=== PATIENT | male | born 1975 | race Caucasian/White ===

== ENCOUNTER 2017-09-19 05:24 | Day surgery (SDC) | payer BC, OTHER ==
[~2017-09-19] VITALS: Ht 177.8 cm; Wt 129.3 kg
--- NOTE | ~2017-09-19 | O ---
[facility] [place] [address] OPERATIVE REPORT Name: MALLY CABRERA Room #: 410-P [facility]#: [id number] Admission: 09/19/17 Attend Phys: Lemuel Ortega MD Discharge: Date of : 75 Report #: [id number] THIS REPORT FOR: //name// CC: FATOU Ortega Physician staff DATE OF SERVICE: 09/19/2017 SERVICE: Orthopedics. FACILITY: [facility]. SURGEON: Lemuel Ortega MD ACCOUNT EXECUTIVE TRAINEE: None. PREOPERATIVE DIAGNOSES: 1. Chronic right knee pain. 2. Right knee chondromalacia. 3. Right knee genu varum with malalignment and medial compartment overload. POSTOPERATIVE DIAGNOSES: 1. Chronic right knee pain. 2. Right knee chondromalacia. 3. Right knee genu varum with malalignment and medial compartment overload. 4. Medial plica syndrome, right knee. PROCEDURES: 1. Right knee arthroscopic chondroplasty with microfracture of the medial femoral condyle. 2. Right knee arthroscopic resection of the medial plica. 3. Right knee high tibial osteotomy. COMPLICATIONS: None. DRAINS: None. SPECIMENS: None. FINDINGS: 1. Grade 2 and 3 chondromalacia of the trochlea as well as the majority of the medial femoral condyle, which was treated with chondroplasty. In regards to the medial femoral condyle, this was more impressive and pronounced than what was suggested by the MRI. Microfracture performed of the posterior linear portion of the chondromalacia on the medial femoral condyle as indicated by the imaging. [address] [address] OPERATIVE REPORT Name: MALLY CABRERA Room #: 410-P [facility]..#: [id number] Admission: 09/19/17 Attend Phys: Lemuel Ortega MD Discharge: Date of : 75 Report #: [id number] 2. Lateral compartment was normal. 3. Arthrex 10 degree correction wedge utilized for HTO with cancellous chips and OSferion wedges. 4. Toe touch weightbearing to right lower extremity x 6 weeks. HISTORY AND INDICATIONS: The patient is a 41-year-old gentleman with a longstanding history of persistent right knee pain that had failed all conservative measures including rest, activity modification, oral medicines, injection and medications. He is having daily pain that was limiting his ADLs and he eventually elected to undergo a definitive treatment for this. We had long discussions in the clinic about the best option for it. He had an MRI of the right knee, which showed chondromalacia of the medial femoral condyle posteriorly. We discussed autologous chondrocyte implantation versus microfracture versus osteoarticular transplantation and ultimately elected to go with an approach for OATS versus microfracture as well as an HTO for his varus deformity. Risks, benefits, alternatives, and indications for surgery were discussed with him in detail. Risks include but not limited to pain, bleeding, infection, injury to nerves or blood vessels, persistent pain despite surgical intervention, failure of any repairs, reconstruction, progression of any preexisting chondral injury, stiffness, need for further surgery as well as complications related to anesthesia such as stroke, heart attack, pulmonary complications, thromboembolic disease and . Despite these risks, he wished to proceed. PROCEDURE IN DETAIL: After right lower extremity was identified as the operative extremity, the patient underwent placement of a single shot regional nerve block with an adductor canal block by the Anesthesia team. He was then taken to the operating room where general anesthesia was induced without complication. Tourniquet was applied to the right thigh. Right leg was prepped and draped in standard sterile fashion. Prophylactic antibiotics with clindamycin were administered at appropriate time. A time-out procedure was performed. A standard anterolateral was followed by anteromedial working portal were established. Diagnostic arthroscopy revealed some significant synovitis throughout as well as some floating chondral debris. The lateral compartment was normal. The patellar cartilage was normal. The trochlea has majority of the articular cartilage defect of a grade 2 and 3 chondromalacia, probably about 75% of the surface area. This extended down towards the medial femoral condyle where there was also a significant grade 2 and grade 3 chondromalacia, but I only noted one very small area of grade 4 full thickness cartilage loss, which measured about 3 mm x 3 mm at the apex of the medial femoral condyle in the weightbearing zone. There was a thickened synovial fold running across the medial femoral condyle that was consistent with a plica. As this has contacted directly over the chondromalacia, I removed this with a shaver performing a plica resection. A shaver was then used to perform chondroplasty of the frayed [address] [address] OPERATIVE REPORT Name: PERLATORREYXenaMALLY Room #: 410-P [facility]#: [id number] Admission: 09/19/17 Attend Phys: Lemuel Ortega MD Discharge: Date of : 75 Report #: [id number] grade 3 chondromalacia and was used to stabilize any loose edges and then the knee was flexed deeper. This allowed visualization of the linear groove that was running anterior to posterior that was recognized on the preoperative MRI and this was near full thickness, so I debrided this with a shaver and then completed microfracture with a [employer] 0.9 mm drill bit. The medial meniscus was normal. There was fraying of the articular cartilage of the posterior medial tibial plateau as well and this was treated with limited chondroplasty. There were no loose bodies and the cruciate ligaments were normal. At this point, after conclusion of the microfracture, the plica resection and chondroplasty, attention was turned towards the tibia. An Esmarch was used to exsanguinate the extremity. Tourniquet was inflated to 350 mmHg. Total tourniquet time was 133 minutes. A standard medial approach to the tibia was made and full thickness skin flaps were developed. The periosteum and MCL and hamstring tendons were identified. An L-shaped incision was made in the periosteum and subperiosteal dissection was performed to elevate the soft tissues while protecting the critical structures. The anterior aspect of the wound was developed in order to allow access to the lateral border of the patellar tendon and this was retracted for the procedure. The ArthMobileReactorlance HTO system was then used to size this patient to a size large implant and a cross table lateral was used to ensure appropriate tibial slope. When the cutting guide was pinned into position here, the final cutting guide placement was completed and then the saw was used to perform the osteotomy with the popliteal retractor in place to protect the posterior neurovascular bundle. A handheld osteotome was used to complete the resection and then the wound was copiously irrigated. With a valgus stress, the distraction paddles were placed into the osteotomy site and the knee was sequentially gapped open. We initially had templated approximately an 8.3-8.4 degree correction and ultimately selected a 10 degree implant. Initially, I chose the 12 mm implant, but this was actually too big and was selected as a function of the distraction paddles torquing and giving it to a 12 degree misread. With the 10 degree size, the patient's alignment was improved from the medial portion of the joint to the peak of the lateral tibial spine, which was the target zone for the presybeterian and alignment correction. After the implant was selected, it was fixed into position and secured. Multiple planes of x-ray used to confirm the appropriate position of the implant and good sizing and then the wound was copiously irrigated and the tourniquet was let down. Hemostasis was achieved. The osteotomy site had been packed with OSferion wedges x 2 as well as cancellous allograft chips and the residual bone reamings, which was autograft placed in the posterior aspect of the wound. The wound was dry and there was no need for a drain. The deep layer was closed with 0 Vicryl suture. Skin was closed with 2-0 Vicryl suture, followed by Monocryl and a sterile dressing was applied, followed by compression stocking. A knee immobilizer was then placed. [address] [address] OPERATIVE REPORT Name: MALLY CABRERA Room #: 410-P [facility] M.R.#: [id number] Admission: 09/19/17 Attend Phys: Lemuel Ortega MD Discharge: Date of : 75 Report #: [id number] The patient had a strong pulse prior to leaving the operating room. There were no complications. All counts were reported as correct. <ELECTRONICALLY SIGNED> By: Lemuel Ortega MD 09/20/17 0557 1616 1836 Lemuel Ortega MD /nt
[~2017-09-19 05:24] MED LIST: ALEVE220 MG PO; ALLEGRA D PO; BLACK ELDERBERRY PO; CELEBREX 200 M200 MG PO; PROAIR HFA8.5 GM INH; VALIUM5 MG PO
[2017-09-19 10:30] VITALS: BP 132/79
[2017-09-19 16:53] VITALS: BP 183/114
[2017-09-19 20:00] VITALS: BP 129/86
[2017-09-20] VITALS: BP 129/79
[2017-09-20 04:00] VITALS: BP 126/76
[2017-09-20 09:28] VITALS: BP 126/76
== END 2017-09-20 11:15 | disposition home or self-care (01) ==
LOC: TBA 05:24 → OR 05:24 → 4N 16:52 → ENTRNSPT 09-20 10:20 → EDTRNSPTSTS 09-20 10:34 → OR 09-20 11:15
DX: M17.11 Unilateral primary osteoarthritis, right knee (principal); M94.261 Chondromalacia, right knee; M21.161 Varus deformity, not elsewhere classified, right knee; M67.51 Plica syndrome, right knee; J45.909 Unspecified asthma, uncomplicated; G47.33 Obstructive sleep apnea (adult) (pediatric); Z90.49 Acquired absence of other specified parts of digestive tract; Z98.890 Other specified postprocedural states; Z87.442 Personal history of urinary calculi; Z88.8 Allergy status to other drugs, medicaments and biological substances
CPT/HCPCS: 10790; 50010; 50101; 50415; 50954; 51038; 52282; 53000; 53170; 54170; 55430; 56527; 56528; 62110; 62900; 70005

== ENCOUNTER 2017-10-03 05:31 | Day surgery (SDC) | payer BC, OTHER ==
[~2017-10-03] VITALS: Ht 177.8 cm; Wt 129.3 kg
--- NOTE | ~2017-10-03 | O ---
[facility] [place] [address] OPERATIVE REPORT Name: MALLY CABRERA Room #: DEP [facility].#: [id number] Admission: 10/03/17 Attend Phys: Lemuel Ortega MD Discharge: 10/03/17 Date of : 75 Report #: [id number] THIS REPORT FOR: //name// CC: Lemuel Ortega Physician staff DATE OF SERVICE: 10/03/2017 SERVICE: Orthopedics. FACILITY: [facility]. SURGEON: Lemuel Ortega MD ALPINE GUIDE: None. PREOPERATIVE DIAGNOSIS: Hematoma, right leg. POSTOPERATIVE DIAGNOSIS: Hematoma, right leg. PROCEDURE: Irrigation and debridement, right leg down to the muscle. ANESTHESIA: General. COMPLICATIONS: None. DRAINS: None. SPECIMENS: Cultures x 2 with tissue specimen sent with the aerobic, anaerobic and fungal cultures. FINDINGS: No signs of purulence. HISTORY AND INDICATIONS: The patient is a 41-year-old gentleman who is 2 weeks status post high tibial osteotomy. He was having issues with his wound postoperatively. We saw him last week and he was having some drainage that continued through the weekend despite wound care. He had evidence of retained hematoma and he was having some difficulty with his rehab as well and so we ultimately felt for the best chance of minimizing further wound complication including infection within the hematoma that surgical irrigation and debridement was most appropriate. Risks, benefits, alternatives and indications for surgery were discussed with him in detail and he gave full informed consent. PROCEDURE IN DETAIL: After right leg was correctly identified as the operative extremity, the patient was taken to the operating room where general anesthesia was induced without complications. Appropriately, prophylactic antibiotics were [facility] [address] [place] [address] OPERATIVE REPORT Name: MALLY CABRERA Room #: DEP [facility]..#: [id number] Admission: 10/03/17 Attend Phys: Lemuel Ortega MD Discharge: 10/03/17 Date of : 75 Report #: [id number] held until after the specimen was taken. No tourniquet was applied. The right leg was prepped and draped in standard sterile fashion. Time-out procedure was performed. The previous incision on the medial aspect of the right leg was incised and dissection was taken down through the wound. There was hematoma noted. This was cultured for anaerobic, aerobic and fungal, and then I explored distally with blunt dissection down to the level of the muscle and then took a second specimen as well as a small sample of necrotic fat and placed this in there with the culture specimen as well. At this point, the patient received his prophylactic antibiotics with 2 grams Ancef and then an elevator was used to debride the necrotic fat. There was no evidence of purulence. There was no tracking down to the bone. The deep layer had actually healed quite nicely at this point and granulated over the bone, and there were no fluid pockets other than some retained hematoma distal where there was some potential space that had developed into a small cavity containing approximately 3-4 mL of hematoma. The wound was then thoroughly irrigated with 3 liters of fluid and cleaned fluid was returned. Hemostasis was achieved as needed, although the wound really did not bleed much at all. The total estimated blood loss was 5 mL. The wound was then closed over a gram of vancomycin powder with 2-0 Monocryl followed by 3-0 nylon. Sterile dressing was applied. The patient was awakened from anesthesia and taken to recovery room in stable condition. There were no complications and all counts were reported as correct. <ELECTRONICALLY SIGNED> By: Lemuel Ortega MD 10/04/17 0640 1831 1852 Lemuel Ortega MD /nt
[2017-10-03 08:33] VITALS: BP 136/98
[2017-10-03 11:38] VITALS: BP 136/98
== END 2017-10-03 12:35 | disposition home or self-care (01) ==
LOC: TBA 05:31 → OR 05:31 → TBA 05:32 → OR 12:35
DX: M96.840 Postprocedural hematoma of a musculoskeletal structure following a musculoskeletal system procedure (principal); J45.909 Unspecified asthma, uncomplicated; G47.33 Obstructive sleep apnea (adult) (pediatric); Z87.442 Personal history of urinary calculi; Z90.49 Acquired absence of other specified parts of digestive tract; Z98.890 Other specified postprocedural states; Z79.891 Long term (current) use of opiate analgesic; Z79.82 Long term (current) use of aspirin
CPT/HCPCS: 50010; 50101; 50386; 53078; 56525; 56527; 57091; 62110; 62900; 70005

== ENCOUNTER 2017-12-04 08:46 | Inpatient (IN) | payer BC, OTHER ==
[~2017-12-04] VITALS: Ht 177.8 cm; Wt 127.0 kg
--- NOTE | ~2017-12-04 | HC ---
[facility] [place] [address] CONSULTATION Name: PERLATORREYXenaMALLY Room #: 405-P [facility] M.R.#: [id number] Admission: 12/04/17 Attend Phys: Cony Smith Discharge: Date of : 75 Report #: [id number] THIS REPORT FOR: //name// CC: Cony Smith [facility] DATE OF SERVICE: 12/04/2017 REASON FOR CONSULTATION: Right-sided low back pain. HISTORY OF PRESENT ILLNESS: The patient is a 41-year-old male who reports being startled in bed 2 weeks ago. He straightened his right hip, felt a pop. He has had progressive worsening pain since. He said it is worse and the pain is exacerbated when he sits or ambulates. He has been attending therapy postoperatively for his right tibial osteotomy and knee scope done on 09/19/2017. He denies any numbness in his legs. Denies any urinary or bowel changes. He reports being seen by his primary care doctor, received systemic steroid injection and Lidoderm patches, which he reports has not improved his pain. His pain progressively has become worse and last night he report having significant pain and difficulty using the restroom due to the pain in the sitting position. REVIEW OF SYSTEMS: NEUROLOGIC: Denies numbness or tingling in the extremities. MUSCULOSKELETAL: Reports what he feels is expected postoperative pain for the right leg. PAST MEDICAL HISTORY: Asthma. ALLERGIES: INCLUDE ACETAMINOPHEN, HYDROCODONE, ASPIRIN, CEFDINIR AND IBUPROFEN. MEDICATIONS: Home medications were just started include methocarbamol, lidocaine and albuterol sulfate. PAST SURGICAL HISTORY: He had lumbar L5 and S1 fusion with a history of MRSA infection, cholecystectomy, tonsillectomy, left ankle tendon repair, multiple surgeries on the right shoulder and the right knee surgery. SOCIAL HISTORY: He works in [employer] and spends a lot of time driving. Denies smoking or drinking alcohol. He is . Denies any use of assistive devices. LABORATORY DATA: On 12/04/2017 showed white blood cell count 8.4, hemoglobin 14.6, hematocrit 42.1, platelet count 173. Chemistry is grossly normal. PHYSICAL EXAMINATION: [facility] [address] [place] [address] CONSULTATION Name: MALLY CABRERA Room #: 405-P [facility].#: [id number] Admission: 12/04/17 Attend Phys: Cony Smith Discharge: Date of : 75 Report #: [id number] GENERAL: He is alert and oriented. He interacts appropriately. He is well-developed, well-nourished male in mild distress. His is at his bedside. VITAL SIGNS: Most recent vital signs show temperature of 36.6, heart rate 60, respiratory rate 14, blood pressure 143/80, and pulse oximetry is 93% on room air. EXTREMITIES: Examination of the right lower extremity, sensation is intact to light touch throughout. He has brisk capillary refill. He does not have any significant weakness to thigh abduction, adduction, EHL, FHL, dorsiflexion, plantarflexion, knee flexion or extension and hip flexion. He has a prior surgical scar on the anterior aspect of his knee. There is no pain with hip or knee range of motion. There is some tenderness at the greater trochanter, but most of his tenderness appears to be at the right side of his SI joint. There is some mild midline lumbar spine tenderness. There is no pain with straight leg raise and no tension signs. RADIOGRAPHS: MRI and lumbar CT scan show postsurgical changes and some mild disk herniation. IMPRESSION AND PLAN: Right low back pain. This appears clinically to be sacroiliac generated; however, he does have some changes on the MRI consistent with some right-sided mild disk herniation. I will discuss this patient with Dr. Ortega as well as Kerry and we will order a consult for pain management from Dr. Devin Phelan. The patient has seen him in the past and felt comfortable in this recommendation. Thank you very much for allowing me to participate in the care of this patient. By: [id number] 1930 Laura Franks MD /viridiana
--- NOTE | ~2017-12-04 | HPC ---
[facility] [address] [address] [place] [address] PAIN MANAGEMENT CONSULTATION Name: MALLY CABRERA Room #: 405-P [facility] M.R.#: [id number] Admission: 12/04/17 Attend Phys: Cony Smith Discharge: Date of : 75 Report #: [id number] THIS REPORT FOR: //name// CC: Cony Smith [facility] DATE OF SERVICE: 12/05/2017 HISTORY OF PRESENT ILLNESS: The patient is a 41-year-old gentleman who I have seen previously in the pain clinic. Last time I saw him was for post-laminectomy syndrome with radiculopathy in 2011. He has been doing reasonably well. It is noted that he had a fusion with Dr. Payne in 2005 and has had some chronic pain. Beginning about 2 weeks ago, he started to hear a sudden sensation and his pain is radiating into his hip and down into the anterior thigh and groin. He had initially felt a pop in his hip sensation, however, an MRI scan on admission demonstrated a concordant L3-L4 right foraminal focal disk herniation with moderate right foraminal stenosis, it was compromising the right L3 nerve root. This was felt to be the pain generator based upon his symptoms and presentation. He had good results with the previous epidural, and for that reason, we were asked to see him. I am hopeful that we can provide similar relief and he can be discharged from the hospital. He does not like to take pain medications. He was given some Robaxin and has taken anti-inflammatory drugs with practically no improvement. He tried some Lidoderm patches, but as expected, this does not provide relief. A Toradol shot also was unhelpful, and he had a recent steroid injection in his right hip. CURRENT MEDICATIONS: Robaxin, albuterol and lidocaine. ALLERGIES: HE DOES NOT DO WELL WITH HYDROCODONE, HAS ASTHMA EXACERBATION WITH ASPIRIN AND IBUPROFEN. PAST MEDICAL HISTORY: Positive for asthma, tonsillectomy, cholecystectomy, ankle repair, fusion L5-S1 and repeat surgery extending to L4 two weeks later. He has sleep apnea. History of kidney stones. Most recent surgery was in September of this year. He had a tibial osteotomy. 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 He denies use of tobacco or alcohol. Denies use of any recreational drugs. REVIEW OF SYSTEMS: Positive for some asthma. Denies any bowel or bladder issues at this time. PHYSICAL EXAMINATION: GENERAL: He is in quite a bit of discomfort. He came down in a wheelchair. He [facility] [address] [place] [address] PAIN MANAGEMENT CONSULTATION Name: MALLY CABRERA Room #: 405-P [facility] ..#: [id number] Admission: 12/04/17 Attend Phys: Cony Smith Discharge: Date of : 75 Report #: [id number] scores his pain as a 9-10/10. VITAL SIGNS: Today, blood pressure of 141/63, heart rate 62, respirations are 18, O2 sat 96%. He is afebrile. He is able to move from sitting to standing position, but is in quite a bit of discomfort. He is noted to have a weight of 280 pounds, 5 feet 10 inches. CHEST: Clear. CARDIAC: Rhythm is regular. MUSCULOSKELETAL: Examination of the spine reveals a midline scar from previous laminectomy fusion. There is tenderness over the scar. Tenderness in the right gluteal cheek. Straight leg raising is positive. He has a scar on the right leg from previous tibial osteotomy. EXTREMITIES: Examination of reflexes shows asymmetry. He has a trace at the knee on the right compared to 2+ on the left and ankle jerk reflexes are symmetrical at 1+. Sensation is intact, but he has some hyperalgesia in the anterior thigh and radiating in the upper thigh almost to the groin. Pain follows L2, L3, L4 dermatomal distribution consistent with the acute lateral right herniation seen on MRI. IMPRESSION: Lumbar radiculopathy, L3-L4. This is related likely to the L3-L4 foraminal disk herniation. RECOMMENDATIONS: Two level transforaminal epidural injection. We discussed injecting the L4-L5 foramen off and the medication travel cephalad along the pedicle. I also told him to make sure that we cover the L3 nerve root effectively, and if necessary, we will reposition the needle as we did during the procedure. I ended up injecting half his medication at L3-L4 and the other half at L4-L5 with fluoroscopic guidance. He was taken to fluoroscopic suite, placed prone, skin prepped with ChloraPrep. Skin anesthetized over the L4-L5 neural foramen. A 20-gauge 6 inch needle was required to advance into the neural foramen using triplanar fluoroscopic views. I injected 1 mL of Omnipaque demonstrating spread into the epidural space. However, there was no cephalad spread. Most of that being contained around the L4-L5 space. I injected half the medication there without difficulty. The needle was withdrawn. I then anesthetized the L3-L4 neural foramen using triplanar fluoroscopic views, I advanced needle into the foramen at that level. 1 mL of Omnipaque demonstrated epidural and nerve root spread. It was then followed by 3 mL of 1% lidocaine mixed with 40 mg of triamcinolone. He tolerated the procedures well, although very uncomfortable lying prone for the procedure. He was taken to recovery room in a wheelchair, was in good condition at time of this dictation, will be sent back to the floor. [facility] [address] [place] [address] PAIN MANAGEMENT CONSULTATION Name: MALLY CABRERA Room #: 405-P [facility].R.#: [id number] Admission: 12/04/17 Attend Phys: Cony Smith Discharge: Date of : 75 Report #: [id number] There were no complications. By: [id number] Devin Phelan MD /nt
[2017-12-04 08:50] VITALS: BP 171/113
[2017-12-04] MEDS ORDERED: LIDOCAINE1 EACH TRANSDERM (08:54)
[2017-12-04] MEDS ORDERED: METHOCARBAMOL500 M2 PO (08:54)
[2017-12-04 10:52] LABS: ABSOLUTE NEUTROPHILS 6.1 thou/uL (1.4-8.2); BASOPHILS 0.4 % (0.0-2.0); EOSINOPHILS 1.4 % (0.0-3.0); HEMATOCRIT 42.1 % (42.0-52.0); HEMOGLOBIN 14.6 gm/dL (14.0-18.0); LYMPHOCYTES 16.4 % (24.0-44.0); MCH 28.5 pg (26.0-34.0); MCHC 34.6 g/dL (28.0-37.0); MCV 82.4 fL (80.0-100.0); MONOCYTES 8.3 % (1.0-8.0); PLATELET COUNT 173 thou/uL (150-400); POLYS 73.5 % (36.0-66.0); RBC 5.12 mil/uL (4.50-6.00); RDW 14.5 % (10.5-14.5); WBC 8.4 thou/uL (4.0-11.0)
[2017-12-04 10:59] LABS: CALCIUM 9.2 mg/dL (8.5-10.1); CREATININE 0.9 mg/dL (0.7-1.3); POTASSIUM 4.3 mmol/L (3.5-5.1)
[2017-12-04 11:35] VITALS: BP 132/89
[2017-12-04 12:37] VITALS: BP 128/76
[2017-12-04 12:52] VITALS: BP 143/80
[2017-12-04 16:50] VITALS: BP 139/72
[2017-12-04 21:52] VITALS: BP 138/70
[2017-12-05 03:45] VITALS: BP 133/63
[2017-12-05 07:17] VITALS: BP 141/63
[2017-12-05] MEDS ORDERED: FLEXERIL PO (16:02)
[2017-12-05] MEDS ORDERED: OXYCODONE HCL 55 MG PO (16:02)
[2017-12-05] MEDS ORDERED: MIRALAX17 GM PO (16:03)
[2017-12-05 16:32] VITALS: BP 141/63
[2017-12-05 19:46] VITALS: BP 141/63
== END 2017-12-05 19:05 | disposition home or self-care (01) | DRG 552 ==
LOC: ER 08:46 → EROBS 11:25 → 4N 11:25
PROVIDERS: Physician Assistant
PROC: 3E0S3BZ Introduction of Anesthetic Agent into Epidural Space, Percutaneous Approach (ICD-10-PCS; principal; 2017-12-05)
PROC: 3E0S33Z Introduction of Anti-inflammatory into Epidural Space, Percutaneous Approach (ICD-10-PCS; principal; 2017-12-05)
DX: M51.16 Intervertebral disc disorders with radiculopathy, lumbar region (principal); J45.909 Unspecified asthma, uncomplicated; B95.62 Methicillin resistant Staphylococcus aureus infection as the cause of diseases classified elsewhere; Z98.1 Arthrodesis status; Z90.49 Acquired absence of other specified parts of digestive tract; Z86.14 Personal history of Methicillin resistant Staphylococcus aureus infection; Z87.442 Personal history of urinary calculi; Z79.899 Other long term (current) drug therapy; Z88.6 Allergy status to analgesic agent; Z88.8 Allergy status to other drugs, medicaments and biological substances
CPT/HCPCS: 10790

== ENCOUNTER 2018-07-05 05:25 | Day surgery (SDC) | payer BC, OTHER ==
[~2018-07-05] VITALS: Ht 177.8 cm; Wt 132.4 kg
[~2018-07-05 05:25] MED LIST changes: +FLEXERIL PO; +LIDOCAINE1 EACH TRANSDERM; +METHOCARBAMOL500 M2 PO; +MIRALAX17 GM PO; +OXYCODONE HCL 55 MG PO
[2018-07-05 14:10] VITALS: BP 139/84
--- NOTE | 2018-07-06 21:11 | O ---
[address] [address] OPERATIVE REPORT Name: MALLY CABRERA Room #: DEP [facility].#: [id number] Admission: 07/05/18 Attend Phys: Lemuel Ortega MD Discharge: 07/05/18 Date of : 75 Report #: [id number] THIS REPORT FOR: //name// CC: FATOU Ortega Physician staff DATE OF SERVICE: 07/05/2018 SERVICE: Orthopedics. FACILITY: [facility]. SURGEON: Lemuel Ortega MD [employer] [facility]IES: Adela Taveras NP PREOPERATIVE DIAGNOSES: 1. Right knee pain. 2. Status post right knee high tibial osteotomy. 3. Right knee chondromalacia. POSTOPERATIVE DIAGNOSES: 1. Right knee pain. 2. Status post right knee high tibial osteotomy. 3. Right knee chondromalacia. 4. Small inner rim lateral meniscus tear. PROCEDURE: Right knee arthroscopy with partial lateral meniscectomy and chondroplasty. COMPLICATIONS: None. DRAINS: None. SPECIMENS: None. ANESTHESIA TYPE: General. FINDINGS: 1. Significant chondromalacia of the medial compartment as well as the patellofemoral compartment. 2. Posterior medial femoral condyle area of microfracture had healed successfully. However, continue chondromalacia present in the anterior half of the medial femoral condyle. [address] [address] OPERATIVE REPORT Name: MALLY CABRERA [id number] Admission: 07/05/18 Attend Phys: Lemuel Ortega MD Discharge: 07/05/18 Date of : 75 Report #: [id number] HISTORY AND INDICATIONS: The patient is a 42-year-old gentleman with a history of persistent right medial knee pain following high tibial osteotomy and microfracture of the medial femoral condyle. He had an area of full thickness articular cartilage damage preoperatively from the first surgery that is the portion that was treated with microfracture, but it was noted intraoperatively to have an additional area of significant grade 2 and grade 3 chondromalacia that was not amenable to this treatment and was treated with chondroplasty. He continued to have pain postoperatively particularly of the medial compartment. We tried extensive conservative measures and completed repeat MRI as well and ultimately he wished to move forward with diagnostic arthroscopy with debridement as indicated. Risks, benefits, alternatives, and indications for this surgery were discussed with him. Risks included but not limited to pain, bleeding, infection, injury to nerves or blood vessels, persistent pain despite surgical intervention, progression of preexisting chondral injury, stiffness, need for further surgery, etc., as well as complications related to anesthesia. PROCEDURE IN DETAIL: After the right lower extremity was correctly identified in preoperative holding area as the operative extremity, the patient was taken to the operating room where general anesthesia was induced without complication. He was padded appropriately. Prophylactic antibiotics were administered at appropriate time. Tourniquet was applied to the right lower extremity. The legs were then prepped and draped in standard sterile fashion. Timeout procedure performed. Standard anterolateral as well as anterior medial working portals were established in typical fashion. Diagnostic arthroscopy revealed overall intact articular cartilage of the patella. There was significant chondromalacia of the trochlea with grade 3 and grade 4 involvement of much of the central portion of the trochlea. There was fraying and softening of the articular cartilage of the medial femoral condyle, which extended from the anterior portion of the distal femur all the way to at least the midpoint of the medial femoral condyle. Posteriorly with the knee in deep flexion, the cartilage was evaluated. He had stable fibrocartilage in place with a microfracture had been performed, which was healed over nicely. Unfortunately, the pathologic cartilage more anteriorly, which could not be treated with microfracture at the previous surgery had not stabilized since the HTO. There was a portion of grade 3 chondromalacia in the central portion of the medial tibial plateau as well. The medial meniscus was intact and was healthy. The ACL and PCL were intact. The lateral compartment was healthy with the exception of inner rim partial thickness perhaps 10% thickness tearing of the lateral meniscus. This was not likely to be a pain generator, but I did want to prevent this from propagating further and becoming symptomatic lateral meniscus tear and so I treated the inner rim lateral meniscus tear with simple debridement with a biter and shaver. The leg was placed into extension. The chondroplasty was completed of the patellofemoral compartment as well after the medial femoral condyle chondroplasty had been performed and then the arthroscopic effusion was drained, the instruments were removed from the knee and the portal sites were closed and sterile dressing was applied. The patient was then awakened from [address] [address] OPERATIVE REPORT Name: MALLY CABRERA Room #: DEP [facility] Sanjuana#: [id number] Admission: 07/05/18 Attend Phys: Lemuel Ortega MD Discharge: 07/05/18 Date of : 75 Report #: [id number] anesthesia and taken to recovery room in stable condition. There were no complications and all counts were recorded as correct. <ELECTRONICALLY SIGNED> By: Lemuel Ortega MD 07/06/18 [id number] [id number] Lemuel Ortega MD /nt
== END 2018-07-05 17:07 | disposition home or self-care (01) ==
LOC: TBA 05:25 → OR 05:25
DX: S83.281A Other tear of lateral meniscus, current injury, right knee, initial encounter (principal); M94.261 Chondromalacia, right knee; J45.901 Unspecified asthma with (acute) exacerbation; G47.30 Sleep apnea, unspecified; Z98.890 Other specified postprocedural states; Z79.899 Other long term (current) drug therapy; Z79.82 Long term (current) use of aspirin; Z88.8 Allergy status to other drugs, medicaments and biological substances; Z87.442 Personal history of urinary calculi; Z90.49 Acquired absence of other specified parts of digestive tract; Z90.89 Acquired absence of other organs; X58.XXXA Exposure to other specified factors, initial encounter; Y93.89 Activity, other specified; Y92.89 Other specified places as the place of occurrence of the external cause; Y99.8 Other external cause status
CPT/HCPCS: 50010; 50101; 50405; 51038; 54170; 56527; 57103; 62110; 62900; 70005

== ENCOUNTER → 2021-04-07 | Day surgery (SDC) | payer OTHER ==
[~2021-04-07] VITALS: Ht 177.8 cm; Wt 142.9 kg
[~2021-04-07] MED LIST changes: +ATIVAN1 M1 PO; +DULOXETINE HCL60 MG PO; +EPIPEN 2-P0.3 MG/0.3 IM; +NORCO5 PO; +TIROSINT112 MCG PO; +VITAMIN D350 MCG PO
--- NOTE | ~2021-04-07 | O ---
[facility] [place] [address] OPERATIVE REPORT Name: MALLY CABRERA Room #: [facility]..#: [id number] Admission: 04/07/21 Attend Phys: Carlos Dyer MD Discharge: Date of : 75 Report #: [id number] THIS REPORT FOR: cc: FATOU MATHUR Physician not on staff Carlos Dyer MD ~ DATE OF SERVICE: 04/07/2021 PREOPERATIVE DIAGNOSIS: Left knee medial meniscus tear. POSTOPERATIVE DIAGNOSES: 1. Left knee medial meniscus tear. 2. Anterior horn lateral meniscus tear, left knee. 3. 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 PROCEDURE: Left knee arthroscopy with partial medial and lateral meniscectomy. SURGEON: Carlos Dyer MD. HRIS SPECIALIST: Mayelin Carl PA-C. ANESTHESIA: LMA. TOURNIQUET TIME: 15 minutes. COMPLICATIONS: None. SPECIMENS: None. CONDITION UPON LEAVING THE OR: Stable. INDICATIONS FOR PROCEDURE: The patient is a 45-year-old gentleman who has had medial-sided left knee pain. He had an MRI scan found to have a tear of the posterior horn of the medial meniscus. After discussion with him, he elected for left knee arthroscopy with partial medial meniscectomy and debridement as needed. DESCRIPTION OF PROCEDURE: Risks, benefits, alternatives, complications were discussed in detail with the patient including but not limited to risk of anesthesia, risk of damage to nerves, arteries, blood vessels, risk for infection, bleeding, risk for continued knee pain and need for reoperation. Informed consent was obtained from the patient's left knee was appropriately marked in the preoperative holding area. IV clindamycin was given for preoperative antibiotics. He was brought to the operating room and placed in supine position on the operating table. LMA anesthesia was induced without [facility] [address] [place] [address] OPERATIVE REPORT Name: DEBORAHMALLYITH Room #: [facility]..#: [id number] Admission: 04/07/21 Attend Phys: Carlos Dyer MD Discharge: Date of : 75 Report #: [id number] complication. Tourniquet was placed on the left thigh. Left lower extremity was prepped and draped in normal sterile fashion. Timeout was performed properly identifying the patient and procedure as well as instrumentation. All in the operating room in agreement. Left lower extremity was exsanguinated and tourniquet inflated. Tourniquet time 15 minutes. Standard anterolateral portal was established with 11 blade through the skin. Arthroscope was introduced into the patellofemoral compartment, diagnostic arthroscopy was undertaken. Patellofemoral compartment was visualized and found to be without pathology. Medial gutter was visualized and found to have cartilaginous debris in the medial gutter. Medial compartment was visualized and medial portal was established under arthroscopic visualization. Probe was introduced in the medial compartment, there was noted to be a tear of the posterior horn of the medial meniscus. This was smoothed back to a stable rim with an oscillating shaver. There was noted to be grade 3 chondromalacia of the medial femoral condyle. Notch was visualized and found to have an intact anterior cruciate ligament. Lateral compartment was visualized and found to have anterior horn lateral meniscus fraying. This was smoothed back with oscillating shaver. Scope was placed back into the patellofemoral compartment. Medial plica was excised with an oscillating shaver. There was also noted to be grade 4 chondromalacia of the trochlear groove. After this, all fluid was drained from the knee. Knee was injected with 10 mL of 0.5% Marcaine. Incision was closed with 3-0 nylon. Soft dressing of Adaptic, 4 x 4 Webril, Talat wrap were applied. The patient tolerated this procedure well and went to recovery room under care of anesthesia postoperatively. By: 1526 [id number] Carlos Dyer MD /nt
[2021-04-07 14:19] VITALS: BP 162/105
[2021-04-07 16:33] VITALS: BP 162/105
== END | disposition home or self-care (01) ==
LOC: OR 09:42
PROVIDERS: ATTEND Orthopaedic Surgery
DX: M25.562 Pain in left knee (principal); M23.242 Derangement of anterior horn of lateral meniscus due to old tear or injury, left knee; M23.222 Derangement of posterior horn of medial meniscus due to old tear or injury, left knee; M94.262 Chondromalacia, left knee; J45.909 Unspecified asthma, uncomplicated; F41.9 Anxiety disorder, unspecified; G47.30 Sleep apnea, unspecified; Z98.890 Other specified postprocedural states; Z79.899 Other long term (current) drug therapy; Z85.850 Personal history of malignant neoplasm of thyroid; Z90.49 Acquired absence of other specified parts of digestive tract; Z87.442 Personal history of urinary calculi; Z88.8 Allergy status to other drugs, medicaments and biological substances; Z20.822 Contact with and (suspected) exposure to COVID-19
CPT/HCPCS: 50010; 50101; 50405; 56526; 57103; 57181; 58577; 58589; 62110; 62900; 70005